=== PATIENT | female | born 1960 | race Caucasian/White ===

== ENCOUNTER 2019-01-25 22:51 | Observation (INO) | payer OTHER ==
[2019-01-25] MEDS ORDERED: Adacel (T-DAP) 0.5 ML SYRINGE ONE (23:13)
--- NOTE | 2019-01-25 23:58 | RAD ---
RIGHT THUMB THREE VIEWS: 01/25/2019 HISTORY: Injury. Trauma. Pain. COMPARISON: None. FINDINGS: There is a comminuted fracture at the base of the right distal phalanx, with extension into the 1st i nterphalangeal joint. There is prominent associated soft tissue swelling with evidence of a nail bed injury. Subcutaneous gas is noted adjacent to the base of the first proximal phalanx, consistent wi th an associated laceration. There is distraction at the fracture site, and there is a moderate degree of volar angulation. IMPRESSION: Open fracture with displacement and angulation involving the base of the first distal phalanx, extend ing into the first interphalangeal joint. POS: [facility]
[2019-01-26 00:54] LABS: #Basophils 0.2 thou/uL (0.0-0.2); #Eosinphils 0.2 thou/uL (0.0-0.7); #Lymphocytes 3.1 thou/uL (1.20-3.40); #Monocytes 0.7 thou/uL (0.11-0.59); #Neutrophils 4.9 thou/uL (1.40-6.50); %Basophils 1.8 % (0.0-1.0); %Eosinophils 2.5 % (0.0-10.0); %Lymphocytes 33.9 % (21.0-51.0); %Monocytes 7.6 % (0.0-10.0); %Neutrophils 54.2 % (42.0-75.0); Mean Corpuscular HGB CONC 32.6 g/dL (32.0-36.0); Mean Corpuscular Hemoglobin 31.7 pg (27.0-31.0); Mean Corpuscular Volume 97.2 fL (78.0-98.0); Mean Platelet Volume 7.6 fL (7.4-10.4); Platelet Count 249 thou/uL (130-400); RBC Distribution Width 11.9 % (11.5-14.5); Red Blood Cell (RBC) Count 4.41 mill/uL (4.20-5.40); White Blood Cell (WBC) Count 9.1 thou/uL (4.8-10.8)
[2019-01-26 01:00] LABS: PTT 28.5 SEC (22.9-36.1); Prothrombin Time 13.4 SEC (12.0-14.7)
[2019-01-26] MEDS ORDERED: Fentanyl 100 MCG/2 ML VIAL ONE (01:00)
[2019-01-26] MEDS ORDERED: Sodium Chloride 0.9% 30 ML ONE (01:04)
[2019-01-26] MEDS ORDERED: Bacitracin Zinc Ointment 30 gm TUBE ONE (01:04)
[2019-01-26] MEDS ORDERED: Bupivacaine PF 0.5% 30 ML VIAL ONE (01:04)
[2019-01-26] MEDS ORDERED: Morphine 4 MG/ML VIAL ONE (01:08)
[2019-01-26 01:15] LABS: ALT (SGPT) 103 U/L (8-55); AST (SGOT) 75 U/L (5-34); Albumin 4.5 g/dL (3.5-5.0); Alkaline Phosphatase 108 U/L (40-150); Anion Gap 17 mmol/L (10-20); BUN (Urea Nitrogen) 13 mg/dL (9.8-20.1); Bilirubin, Total 0.3 mg/dL (0.2-1.2); Calc. Creatinine Clearance 0 mL/min (70-130); Calcium 9.8 mg/dL (7.8-10.44); Carbon Dioxide 25 mmol/L (22-29); Chloride 104 mmol/L (98-107); Estimated GFR-MDRD 78; Globulin 2.7 g/dL (2.4-3.5); Glucose 96 mg/dL (70-105); Potassium 4.1 mmol/L (3.5-5.1); Protein, Total 7.2 g/dL (6.0-8.3); Sodium 142 mmol/L (136-145)
[2019-01-26] MEDS ORDERED: CEFAZOLIN 1 GM VIAL ONE (01:42)
[2019-01-26] MEDS ORDERED: Midazolam HCl 2 mg/2 ml Vial ONE (02:06)
[2019-01-26] MEDS ORDERED: Ondansetron PF 4 MG/2 ML Vial IV PRN (02:19)
[2019-01-26] MEDS ORDERED: Promethazine HCl 25 MG/ML VIAL IM PRN ×2 (02:19→04:05)
[2019-01-26] MEDS ORDERED: Morphine 4 MG/ML VIAL SLOW IVP PRN (02:19)
[2019-01-26] MEDS ORDERED: Acetaminophen 325 MG TAB PO PRN (02:19)
[2019-01-26] MEDS ORDERED: Bisacodyl 10 MG SUPP PR PRN (02:19)
[2019-01-26] MEDS ORDERED: traMADol HCl 50 MG TAB PO PRN (02:19)
[2019-01-26] MEDS ORDERED: HYDROcodone/Acetaminophen 5/325 mg Tablet PO PRN (02:19)
[2019-01-26] MEDS ORDERED: Meperidine HCl/PF 25 MG/ML VIAL IM PRN (02:23)
[2019-01-26] MEDS ORDERED: Communication Order-Pharmacy FS SCH (02:30)
[2019-01-26] MEDS ORDERED: CEFAZOLIN 2 GM in Premix Bag 1 BAG IVPB SCH (04:00)
[2019-01-26] MEDS ORDERED: Ondansetron HCl/PF 4 MG/2 ML Vial IVP PRN (04:05)
[2019-01-26] MEDS ORDERED: Promethazine HCl 25 MG/ML VIAL SLOW IVP PRN (04:05)
[2019-01-26 05:12] VITALS: BMI 26.6
[2019-01-26] MEDS: Ketorolac Tromethamine 30 MG/ML VIAL IVP SCH ×3 (05:48→18:23)
[2019-01-26] MEDS: Gentamicin Sulfate 80 MG in Premix Bag 1 BAG IVPB SCH ×2 (05:49→14:30)
--- NOTE | 2019-01-26 08:36 | RAD ---
RADIOGRAPH RIGHT FIRST DIGIT 3 VIEWS: Date: 01/26/19 HISTORY: 58-year-old female with fracture of the thumb. COMPARISON: 01/25/19. FINDINGS: Fluoroscopic spot images obtained with C-arm in the OR demonstrate interval reduction of the previous ly displaced fracture at the proximal metaphysis of the first distal phalanx, fixated now by three 3 K-wires. IMPRESSION: Reduction and pinning fixation of acute, traumatic fracture of the proximal metaphysis of the first d istal phalanx. POS: [facility]
--- NOTE | 2019-01-26 08:37 | RAD ---
RADIOGRAPH CHEST 1 VIEW: HISTORY: A 58-year-old female for preoperative clearance. FINDINGS: There are no air space densities, pulmonary edema, pneumothorax, or cardiomegaly. The lateral costop hrenic angles are sharp. IMPRESSION: No acute cardiopulmonary findings. estelita [] POS: [facility]
[2019-01-26] MEDS ORDERED: Aspirin 81 mg Enteric Coated Tablet PO SCH (09:00)
[2019-01-26] MEDS ORDERED: TETANUS AND DIPHTHERIA TOX/PF 0.5 ML DISP.SYRIN IM SCH (09:00)
--- NOTE | 2019-01-26 09:21 | HP ---
CHIEF COMPLAINT: Open injury, right base of thumb with exposed blood. HISTORY OF PRESENT ILLNESS: The patient reports she was walking her 2 greater than 75 pounds dogs, one in each arm without any prior history of thumb problems when they were "spooked" by a [facility] armadillo, unidentified nomenclature, and violently pulled her thumb then contacted a standing pole. She noted immediate pain, swelling, deformity, and bleeding. She reported to the hospital as soon as she could arrive. She reports that she may have had a portion of her body pulled to the ground most on the right side, but does not have any other right pain, bleeding, or deformity. PAST MEDICAL HISTORY: Asthma. MEDICATIONS: 1. Inhaler as needed. 2. Amlodipine. REVIEW OF SYSTEMS: Negative for complaints of numbness, tingling, cranial nerve, neck pain abnormality. No thoracic, lumbosacral, or pelvic pain. No lower extremity pain. ALLERGIES: NO DRUG ALLERGIES. PHYSICAL EXAMINATION: The patient is awake, alert, and oriented x3. She has very superficial abrasions on the right cheek, right paracervical neck and the middle sternoclavicular line. She has no right shoulder abnormality. Does have some abrasions on the right mid and proximal forearm. She has some small abrasions of the anterolateral thigh and leg. Her elbow, shoulder, clavicle, sternal, paracervical exam, mentum, and jaw without tenderness. She has no posterior cervical, paracervical, medial, lateral/thoracic, thoracolumbar or SI joint abnormality. Gait is within normal limits. She has normal two-point discrimination in radial and ulnar aspect of the right thumb and index finger where at the right thumb she has a 2 cm dorsal laceration just distal to the joint line where it is "open book" type presentation with the thumb, distal phalanx, distal to the wound being about 30 degrees of flexion. FPL grossly intact. Normal two-point discrimination again. No gross contamination other than the blood seen. LABORATORY DATA: Radiographic assessment shows a mildly comminuted ulnar aspect of the base of the thumb fracture with approximately 3 to 3.5 mm of bone at its thickest portion. There are no areas of soft tissue seen. ASSESSMENT AND RECOMMENDATIONS: Grade 2 open fracture distal phalanx: Recommend irrigation and debridement and probably will stay in the hospital 12 to 24 hours postop for IV antibiotics before being discharged on prophylactic antibiotics. The patient understood the risks to include infection and that is why we had to go in early. Despite the fact that she has been n.p.o. at the time, surgery will begin in only approximately 5 hours. Job ID: [id number]
[2019-01-26] MEDS: CEFAZOLIN 2 GM in Premix Bag 1 BAG IVPB SCH ×2 (10:51→18:05)
--- NOTE | 2019-01-26 14:10 | OP ---
DATE OF PROCEDURE: 01/26/2019 PREOPERATIVE DIAGNOSES: 1. Grade 2 open fracture distal phalanx thumb with deep moderate contaminated superficial underneath the epidermis and dermis with debris, particular type. 2. Displaced open fracture, distal phalanx comminuted with some minimal bone loss at the fracture line. 3. Nail bed laceration junction of the extensor tendon and nail bed matrix, germinal, and same for the extensor tendon small laceration on either end of the nail bed germinal matrix. PROCEDURES PERFORMED: 1. Debridement of material associated with open fracture. 2. Debridement of wound (technique used for both would be excisional technique, use of [place] blade, tenotomy scissors, curette, baby bone rongeur/Abhishek and Crile clamps, Pulsavac, 4 L normal saline, and Pulsavac pressure). 3. Repair of nailbed. 4. Repair of extensive mechanism laceration zone 1. 5. C-arm supervision. 6. Open reduction and internal fixation of fracture. The depth of all debridement was down to include nail bone. INDICATION: The patient was involved in the incident while she was walking the dogs at approximately 2200 hours the day before surgery. The dogs inadvertently took off while chasing an armadillo and pulled her body into a pole, where she then got up off the ground and noticed blood and deformity at the thumb base. DESCRIPTION OF PROCEDURE: After successful general LMA technique, the limb was prepped and draped. After a time-out was appropriately done, the patient had the exsanguination and inflation site completed, we immediately noticed the pattern and extended the dorsal incision away from both the volar medial and volar lateral distal thumb 1.5 cm to expose the entire fracture and open joint type area. It was here that we discovered the debris, particularly a moderate amount underneath the dermis epidermal junction on both sides of fracture along with a hematoma and these were irrigated and debrided immediately as deep as possible using the instrumentation listed above. Excision technique was used. Once we could visualize all particulate matter gone, this included using a small rongeur, we then irrigated with 4 L of normal saline and Pulsavac pressure with antibiotics inside. The patient then had the fracture reduced, we placed one oblique pin from the most radial aspect ulnarly and then we were able to obtain excellent coaptation of the fracture except for an area, where there was maybe 0.5 mm interfragmentary comminution seen palmarly on the sagittal planes by augmenting this oblique K-wire with two 0.035 K-wires, which crossed just proximal to the fracture line. Then was very stable, we had a tenodesis effect almost with flexion FPL and we were able to deflate the tourniquet and obtain hemostasis. We then closed the nailbed defect at the germinal matrix juncture extensor tendon. On these edges, we placed a Prolene buried [id number] stitch to repair the extensor tendon and then we used a running 5-0 chromic to repair the nail bed matrix separation. C-arm confirmed to maintain anatomic position, so we cut pin slightly below the skin, placed a bulky dressing with bacitracin, Adaptic, and then placed it over the of the edges that could be sharp and this was over bacitracin Adaptic. The patient then had hemostasis obtained well, and there was no evidence of anesthetic or operative complication. The patient left the room with a short-arm thumb spica splint and excellent hemostasis. Job ID: [id number]
[2019-01-26] MEDS ORDERED: ePHEDrine 50 MG/ML VIAL ONE (14:37)
[2019-01-26] MEDS ORDERED: Lidocaine 1% PF 5 ML VIAL ONE (14:37)
[2019-01-26] MEDS ORDERED: Succinylcholine Chloride 20 MG/ML 10 ml SYRINGE FS ONE (14:37)
[2019-01-26] MEDS ORDERED: PROPOFOL 200 MG/20 ML VIAL ONE (14:37)
[2019-01-26] MEDS ORDERED: Ondansetron PF 4 MG/2 ML Vial ONE (14:37)
[2019-01-26] MEDS ORDERED: PHENYLEPHRINE-NS 100 MCG/ML 10 ML SYRINGE ONE (14:37)
[2019-01-26] MEDS ORDERED: Dexamethasone 20 MG/5 ML VIAL ONE (14:37)
[2019-01-26 19:42] VITALS: BP 165/83; TEMP 98.3
--- NOTE | 2019-01-31 22:37 | EKG ---
Test Reason : Blood Pressure : / mmHG Vent. Rate : 066 BPM Atrial Rate : 066 BPM P-R Int : 144 ms QRS Dur : 082 ms QT Int : 400 ms P-R-T Axes : 038 010 032 degrees QTc Int : 419 ms Normal sinus rhythm Normal ECG Confirmed by HELIO WELLS MD ([id number]), fashion editor PABLITO ORO ([id number]) on 01/31/2019 10:37:00 PM Referred By: CRYSTAL WELLS Confirmed By:HELIO WELLS MD
== END 2019-01-26 20:30 | disposition home or self-care (01) ==
LOC: ERS 22:51 → SDC 01-26 02:00 → 3SE 01-26 02:19
PROVIDERS: ADMIT Orthopaedic Surgery Hand Surgery; ATTEND Orthopaedic Surgery Hand Surgery
PROC: 0HQQXZZ Repair Finger Nail, External Approach (ICD-10-PCS; principal; 2019-01-26)
PROC: 0PSR04Z Reposition Right Thumb Phalanx with Internal Fixation Device, Open Approach (ICD-10-PCS; 2019-01-26)
PROC: 0PSR04Z Reposition Right Thumb Phalanx with Internal Fixation Device, Open Approach (ICD-10-PCS; 2019-01-26)
DX: S62.521B Displaced fracture of distal phalanx of right thumb, initial encounter for open fracture (principal); J45.909 Unspecified asthma, uncomplicated; I10 Essential (primary) hypertension; Z87.891 Personal history of nicotine dependence; Z79.899 Other long term (current) drug therapy; X50.0XXA Overexertion from strenuous movement or load, initial encounter
CPT/HCPCS: 36415; 71045; 76000; 80053; 85025; 85610; 85730; 90471; 90715; 93005; 96365; 96374; 96375; 96376; G0378; J0690; J1100; J1580; J1885; J2001; J2250; J2270; J2405; J2704; J3010; J3490; S0020

== ENCOUNTER 2019-04-10 06:48 | Day surgery (SDC) | payer OTHER ==
[2019-04-09 12:32] VITALS: BMI 27.6
[2019-04-10] MEDS ORDERED: Fentanyl 100 MCG/2 ML VIAL ONE (08:27)
[2019-04-10] MEDS ORDERED: Midazolam HCl 2 mg/2 ml Vial ONE (08:27)
[2019-04-10] MEDS ORDERED: Bupivacaine PF 0.5% 30 ML VIAL ONE (08:34)
[2019-04-10] MEDS ORDERED: Thrombin 5000 UNITS/5 ML VIAL ONE (08:34)
[2019-04-10] MEDS ORDERED: Bacitracin Zinc Ointment 30 gm TUBE ONE (08:34)
[2019-04-10] MEDS ORDERED: Sodium Chloride 0.9% 10 ML ONE (08:35)
[2019-04-10] MEDS ORDERED: Ketorolac Tromethamine 30 MG/ML VIAL ONE (10:01)
--- NOTE | 2019-04-10 15:44 | OP ---
DATE OF PROCEDURE: 04/10/2019 PREOPERATIVE DIAGNOSIS: Painful deep implant three K-wires, a healed right thumb base distal phalanx, previous open fracture. POSTOPERATIVE DIAGNOSIS: Painful deep implant three K-wires, a healed right thumb base distal phalanx, previous open fracture. FINDINGS: Fractured heel stable and the K-wires removed. PROCEDURE PERFORMED: 1. C-arm supervision. 2. Removal of K-wires x2, right thumb. ANESTHESIA: General LMA augmented by 10 mL 0.5% Marcaine block, no epinephrine. DESCRIPTION OF PROCEDURE: The patient was prepped and draped. Marcaine was given. Time-out was done appropriately. C-arm brought to the field, identified the wires. Made incisions over all three wires to include a fairly deep incision under C-arm supervision for the proximal one, via these two separate incisions, removed all three wires. Fracture stable under fluoroscopy after it was in frontal sagittal plane. The patient left the operating room with a bulky dress. No complications. Job ID: [id number]
--- NOTE | 2019-04-10 15:48 | RAD ---
RIGHT THUMB TWO VIEWS: 04/10/19 HISTORY: Hardware removal. COMPARISON: 01/26/19 study. The pins that had been placed in the distal phalanx of the thumb have been removed. Bony alignment ap pears satisfactory with evidence of healed or healing fracture. IMPRESSION: Interval hardware removal. POS: [facility]
== END 2019-04-10 11:40 | disposition home or self-care (01) ==
LOC: SDC 06:48
PROVIDERS: ATTEND Orthopaedic Surgery Hand Surgery
PROC: 0RPW0JZ Removal of Synthetic Substitute from Right Finger Phalangeal Joint, Open Approach (ICD-10-PCS; principal; 2019-04-10)
DX: T84.84XA Pain due to internal orthopedic prosthetic devices, implants and grafts, initial encounter (principal); I10 Essential (primary) hypertension; J45.909 Unspecified asthma, uncomplicated; Z79.899 Other long term (current) drug therapy
CPT/HCPCS: 76000; J0690; J1885; J2250; J3010; J3490; S0020

== ENCOUNTER 2019-08-31 15:35 | Outpatient (CLI) | payer OTHER ==
--- NOTE | 2019-08-31 17:01 | MMO ---
Bilateral MAMMO Bilat Screen [facility]. CLINICAL HISTORY: Patient is 59 years old and is seen for screening. The patient has no family history of breast cancer. The patient has no personal history of cancer. VIEWS: The views performed were: bilateral craniocaudal with tomosynthesis and bilateral mediolateral oblique with tomosynthesis. FILMS COMPARED: The present examination has been compared to prior imaging studies performed at [facility] on 09/26/2009 and 09/27/2009, and at [facility] on 11/09/2002 and 01/15/2006. This study has been interpreted with the assistance of computer-aided detection. MAMMOGRAM FINDINGS: There are scattered fibroglandular densities. There are no suspicious masses, suspicious calcifications, or new areas of architectural distortion. IMPRESSION: THERE IS NO MAMMOGRAPHIC EVIDENCE OF MALIGNANCY. A ROUTINE FOLLOW-UP MAMMOGRAM IN 1 YEAR IS RECOMMENDED. THE RESULTS OF THIS EXAM WERE SENT TO THE PATIENT. ACR BI-RADS Category 1 - Negative MAMMOGRAPHY NOTE: 1. A negative mammogram report should not delay a biopsy if a dominant of clinically suspicious mass is present. 2. Approximately 10% to 15% of breast cancers are not detected by mammography. 3. Adenosis and dense breasts may obscure an underlying neoplasm. Reported by: GAVI YOUNG MD Electonically Signed: [id number]
== END 2019-08-31 15:36 | disposition home or self-care (01) ==
LOC: BICMAMMO 15:35
PROVIDERS: ATTEND Internal Medicine
DX: Z12.31 Encounter for screening mammogram for malignant neoplasm of breast (principal)
CPT/HCPCS: 77063; 77067

== ENCOUNTER 2019-11-12 16:29 | Outpatient (CLI) | payer OTHER ==
--- NOTE | 2019-11-12 16:50 | RAD ---
Chest 2 views HISTORY: Bronchitis. Dyspnea. Cough. COMPARISON: 01/26/2019. FINDINGS: Cardiac silhouette and pulmonary vasculature are unremarkable. Mediastinum is midline with aortic calcification. No confluent airspace consolidation, pneumothorax, or pleural fluid evident. IMPRESSION: No active cardiopulmonary abnormalities are demonstrated.
== END 2019-11-12 16:30 | disposition home or self-care (01) ==
LOC: BICRAD 16:29
PROVIDERS: ATTEND Internal Medicine
DX: J20.9 Acute bronchitis, unspecified (principal); Z87.891 Personal history of nicotine dependence
CPT/HCPCS: 71046

== ENCOUNTER 2021-05-24 10:55 | Outpatient (CLI) | payer OTHER | END 2021-05-24 10:56 | disposition home or self-care (01) | LOC: BICMAMMO 10:55 | PROVIDERS: ATTEND Family Medicine | DX: Z12.31 Encounter for screening mammogram for malignant neoplasm of breast (principal) | CPT/HCPCS: 77063; 77067 ==

== ENCOUNTER 2022-02-26 11:10 | Outpatient (CLI) | payer OTHER ==
[2022-02-26 12:56] LABS: #Eosinphils 0.1 10x3/uL (0.0-0.5); #Monocytes 0.5 10x3/uL (0.0-1.1); #Neutrophils 2.2 10x3/uL (1.5-8.4); %Basophils 0.7 % (0.0-2.0); %Eosinophils 2.1 % (0.0-6.0); %Lymphocytes 47.8 % (18.0-47.0); %Monocytes 8.4 % (0.0-10.0); %Neutrophils 40.6 % (40.0-75.0); Hemoglobin 13.6 g/dL (12.0-15.5); Mean Corpuscular Hemoglobin 32.2 pg (27.0-33.0); Mean Corpuscular Volume 97.4 fl (81.6-98.3); Mean Platelet Volume 9.9 fl (7.4-10.4); Platelet Count 255 10x3/uL (150-450); RBC Distribution Width 13.1 % (11.5-14.5); Red Blood Cell (RBC) Count 4.23 10x6/uL (3.90-5.03); White Blood Cell (WBC) Count 5.3 10x3/uL (3.5-10.5)
[2022-02-26 23:31] LABS: SARS-CoV-2 PCR by NAA Not Detected (NotDetected)
== END 2022-02-26 11:11 | disposition home or self-care (01) ==
LOC: LABBT 11:10
PROVIDERS: ATTEND Orthopaedic Surgery
DX: Z01.818 Encounter for other preprocedural examination (principal); S83.281A Other tear of lateral meniscus, current injury, right knee, initial encounter; M17.11 Unilateral primary osteoarthritis, right knee; Z20.822 Contact with and (suspected) exposure to COVID-19
CPT/HCPCS: 85025; 93005; 93010; U0003; U0005

== ENCOUNTER 2022-03-01 09:13 | Day surgery (SDC) | payer OTHER ==
[2022-02-27 12:39] VITALS: BMI 27.4
[2022-03-01] MEDS ORDERED: ceFAZolin (BATCH) 2 GM/100 ML BAG ONE (10:33)
[2022-03-01] MEDS ORDERED: Ketorolac Tromethamine 30 MG/ML VIAL ONE (10:49)
[2022-03-01] MEDS ORDERED: Dexamethasone 20 MG/5 ML VIAL ONE (10:49)
[2022-03-01] MEDS ORDERED: Lidocaine 2% w/Epinephrine 1:200K 20 ML VIAL ONE (10:49)
[2022-03-01] MEDS ORDERED: Bupivacaine HCl 0.5%/Epinephrine 1:200,000/PF 30 ml Vial ONE (10:49)
[2022-03-01] MEDS ORDERED: PROPOFOL 200 MG/20 ML VIAL ONE (10:49)
[2022-03-01] MEDS ORDERED: Ondansetron PF 4 MG/2 ML Vial ONE (10:49)
[2022-03-01] MEDS ORDERED: fentaNYL Citrate/PF 100 MCG/2 ML SYRINGE ONE (10:56)
[2022-03-01] MEDS ORDERED: Lidocaine 1% (PF) 30 ML VIAL ONE (11:48)
== END 2022-03-01 14:16 | disposition home or self-care (01) ==
LOC: SDC 09:13
PROVIDERS: ATTEND Orthopaedic Surgery
PROC: 0SBC4ZZ Excision of Right Knee Joint, Percutaneous Endoscopic Approach (ICD-10-PCS; principal; 2022-03-01)
DX: S83.271A Complex tear of lateral meniscus, current injury, right knee, initial encounter (principal); M17.31 Unilateral post-traumatic osteoarthritis, right knee; M71.21 Synovial cyst of popliteal space [Baker], right knee; M21.061 Valgus deformity, not elsewhere classified, right knee; I10 Essential (primary) hypertension; J45.909 Unspecified asthma, uncomplicated; Z87.891 Personal history of nicotine dependence; Z79.899 Other long term (current) drug therapy
CPT/HCPCS: J0690; J1100; J1885; J2001; J2405; J2704

== ENCOUNTER 2022-05-28 11:45 | Outpatient (CLI) | payer OTHER | END 2022-05-28 11:46 | disposition home or self-care (01) | LOC: BICMAMMO 11:45 | PROVIDERS: ATTEND Family Medicine | DX: Z12.31 Encounter for screening mammogram for malignant neoplasm of breast (principal) | CPT/HCPCS: 77063; 77067 ==

== ENCOUNTER 2024-12-18 13:13 | Outpatient (CLI) | payer MEDICARE, OTHER | END 2024-12-18 13:14 | disposition home or self-care (01) | LOC: BICRAD 13:13 | PROVIDERS: ATTEND Family Medicine | DX: M47.26 Other spondylosis with radiculopathy, lumbar region (principal) | CPT/HCPCS: 72100 ==